=== PATIENT | female | born 1980 | race Caucasian/White ===

== ENCOUNTER 2021-03-03 17:51 | Emergency (ER) | payer SELFPAY ==
[~2021-03-03] VITALS: Ht 157.5 cm; Wt 81.3 kg
[~2021-03-03 17:51] MED LIST: IBUP-1222 PO
[2021-03-03 18:35] VITALS: BP 148/94
[2021-03-03 19:11] LABS: BASOPHILS % (AUTO) 1 % (0-1); EOSINOPHILS % (AUTO) 2 % (1-7); LYMPHOCYTES % (AUTO) 31 % (22-44); MEAN CORPUSCULAR HEMOGLOBIN 32.5 pg (27.0-34.8); MEAN CORPUSCULAR HGB CONC 34.1 g/dL (32.4-35.8); MEAN PLATELET VOLUME 7.3 fL (7.4-10.4); MONOCYTES % (AUTO) 4 % (2-9); NEUTROPHILS % (AUTO) 62 % (42-75); PLATELET COUNT 287 x10^3/uL (130-400); RED BLOOD COUNT 4.31 x10^6/uL (3.82-5.3)
[2021-03-03 19:26] LABS: CALCIUM 8.6 mg/dL (8.5-10.1); CHLORIDE 108 mmol/L (98-107)
[2021-03-03 19:35] LABS: ALANINE AMINOTRANSFERASE 78 U/L (12-78); ALBUMIN 3.7 g/dL (3.4-5.0); ALKALINE PHOSPHATASE 76 U/L (45-117); ANION GAP 9 mmol/L (5-15); BILIRUBIN,TOTAL 0.2 mg/dL (0.2-1.0); CREATININE 0.65 mg/dL (0.55-1.02); TOTAL PROTEIN 8.2 g/dL (6.4-8.2)
--- NOTE | 2021-03-03 19:46 | NUR ---
DRAMA TEACHER: PATIENT PROVIDED URINE SAMPLE. LABELED AND SENT TO LAB.
[2021-03-03 21:02] LABS: MICROSCOPIC AUTO
--- NOTE | 2021-03-03 21:46 | NUR ---
PT PRESENTS TO THE ED WITH LOWER LEFT ABD PAIN. PT STATES SHE HAS NEVER HAD A KIDNEY STONE BEFORE. PT HAS HAD A HYSTERECTOMY, BUT STILL HAS AN OVARY. PT IN GOWN, RESTING ON GURNEY. ERP AT BEDSIDE
[2021-03-03] MEDS ORDERED: ONDANSETRON ODT 4 MG ONE (21:50)
[2021-03-03] MEDS ORDERED: KETOROLAC 60 MG/2 ML ONE (21:51)
[2021-03-03] MEDS ORDERED: HYDROcodone/APAP 5/325 TABLET ONE (21:51)
[2021-03-03] MEDS ORDERED: KETOROLAC 30 MG/1 ML IM ONE (22:00)
[2021-03-03] MEDS ORDERED: HYDROcodone/APAP 5/325 TABLET PO ONE (22:00)
[2021-03-03] MEDS ORDERED: ONDANSETRON ODT 4 MG PO ONE (22:00)
--- NOTE | 2021-03-03 22:53 | NUR ---
Patient given discharge instructions and they have confirmed that they understand the instructions. Patient ambulatory with steady gait.
== END 2021-03-03 22:55 | disposition home or self-care (01) ==
LOC: ED 17:59
DX: N20.1 Calculus of ureter (principal); R10.32 Left lower quadrant pain; R31.9 Hematuria, unspecified
CPT/HCPCS: 36415; 74176; 80053; 81001; 84703; 85025; 87086; 96372; 99284; J1885; Q0162